=== PATIENT | female | born 1930 | race Caucasian/White ===

== ENCOUNTER 2019-06-27 18:30 | Emergency (ER) | payer BC ==
[~2019-06-27] VITALS: Ht 160 cm; Wt 79.4 kg
--- NOTE | 2019-06-27 19:15 | PHYS DOC ---
Past Medical History Past Medical History: Hypertension, Other Additional Past Medical Histor: OSTEOPOROSIS Alcohol Use: None Drug Use: None Adult General Chief Complaint Chief Complaint: UPPER EXTREMITY PAIN [facility] HPI Patient is a 88 year old female who was brought here for [facility] for diagnosis of subacute fracture humeral neck on the right side. Her family patient fell about 4 months ago, hurt her right shoulder, there was no x-ray done. And again she fell 3 days ago, she had been complaining of right shoulder pain, x-ray was done today of Her right shoulder shown subacute fracture humeral neck on the right side, with no dislocation. Somehow the [facility] doctor sent her here to be evaluated by orthopedic doctor. She denies any pain in her head or her neck. Patient denies any back pain. Patient denies any hip pain. Patient denies any weakness or numbness in her right upper extremity. All other ROS is negative unless otherwise noted in HPI Review of Systems Review of Systems See above Physical Exam Physical Exam See above Constitutional: Well developed, well nourished, no acute distress, non-toxic appearance. [] HENT: Normocephalic, atraumatic, bilateral external ears normal, oropharynx moist, no oral exudates, nose normal. [] Eyes: PERRLA, EOMI, conjunctiva normal, no discharge. [] Neck: Normal range of motion, no tenderness, supple, no stridor. [] Cardiovascular:Heart rate regular rhythm, no murmur [] Lungs & Thorax: Bilateral breath sounds clear to auscultation [] Abdomen: Bowel sounds normal, soft, no tenderness, no masses, no pulsatile masses. [] Skin: Warm, dry, no erythema, no rash. [] Back: No tenderness, no CVA tenderness. [] Extremities: There is tendernes to right proximal humerus area, no swelling, no contusion, no deformity, no cyanosis, no clubbing, ROM intact, no edema. NO EVIDENCE OF SHOULDER DISLOCATION. Neurologic: Alert and oriented X 3, normal motor function, normal sensory f unction, no focal deficits noted. [] Psychologic: Affect normal, judgement normal, mood normal. [] Current Patient Data Vital Signs Vital Signs Date Time Temp Pulse Resp B/P (MAP) Pulse Ox O2 Delivery O2 Flow Rate FiO2 06/27/19 18:30 97.8 66 18 213/89 (130) 97 Room Air 97.8 EKG EKG [] Radiology/Procedures Radiology/Procedures [] Course & Med Decision Making Course & Med Decision Making Pertinent Labs and Imaging studies reviewed. (See chart for details) [She is is an 80-year-old female with subacute fracture right humeral neck, no dislocation. Patient does not need any urgent intervention by orthopedic doctor today. A sling was placed on her right shoulder, her son will take her back to the [facility]pc. Patient was provided information of the orthopedic doctor here so she can call for follow-up next week. Son said he would take care of that. Dragon Disclaimer Dragon Disclaimer This electronic medical record was generated, in whole or in part, using a voice recognition dictation system. Departure Departure Impression: Primary Impression: Fx humeral neck Disposition: 01 HOME, SELF-CARE Condition: STABLE Referrals: IDALIA FONTENOT MD please call this orthopedic doctor for follow up next week. Patient Instructions: Arm Sling Use, [id number], Humerus Fracture, Treated with Immobilization HERNANDEZ MICHELE DO Jun 27, 2019 19:15
[2019-06-27 19:21] VITALS: BP 218/94
== END 2019-06-27 19:18 | disposition home or self-care (01) ==
LOC: ER 18:30
DX: S42.211A Unspecified displaced fracture of surgical neck of right humerus, initial encounter for closed fracture (principal); I10 Essential (primary) hypertension; W18.39XA Other fall on same level, initial encounter; Y93.89 Activity, other specified; Y92.128 Other place in nursing home as the place of occurrence of the external cause; Y99.8 Other external cause status
CPT/HCPCS: 99284

== ENCOUNTER 2020-08-20 20:50 | Inpatient (IN) | payer MEDICARE, OTHER ==
[2020-08-20 20:26] VITALS: BP 122/54
[~2020-08-20 20:50] MED LIST: ACET-1871 PO; ACET650S11 PR; ALEN70TA71 PO; CALC400T5 PO; DOCU-109 PO; LACT1CAP19 PO; LEVO25TA4 PO; LISI20TA18 PO; MAGN400O7 PO; MELA5LIQ2 PO; MULT-245 PO; VITA1TAB31 PO
[2020-08-20] MEDS ORDERED: ACETAMINOPHEN 325 MG TABLET. PO PRN (22:00)
[2020-08-20] MEDS ORDERED: CALCIUM CARBONATE 500 MG TAB.CHEW PO PRN (22:00)
[2020-08-20] MEDS ORDERED: PHENYLEPH/MINERAL OIL/PETROLAT RECTAL OINTMENT TUBE. RC PRN (22:00)
[2020-08-20] MEDS ORDERED: MAGNESIUM HYDROXIDE 2,400 MG/30 ML ORAL.SUSP. PO PRN (22:00)
[2020-08-20] MEDS ORDERED: ALBUTEROL SULFATE 2.5 MG/3 ML NEBU. NEB PRN (22:00)
[2020-08-20] MEDS ORDERED: ONDANSETRON ODT 4 MG TAB.RAPDIS. PO PRN (22:00)
[2020-08-20] MEDS ORDERED: ONDANSETRON PF 4 MG/2 ML VIAL. IVP PRN (22:00)
[2020-08-20 23:00] VITALS: BP 131/47
[2020-08-20] MEDS: POTASSIUM CL 20MEQ D5-0.2%NACL 1,000 ML IV SCH (23:14)
[2020-08-21] MEDS ORDERED: C.DIFF MED SCREEN BY RX. MC ONE (00:45)
[2020-08-21 03:00] VITALS: BP 105/40
--- NOTE | 2020-08-21 03:18 | NUR ---
Patient received from [facility]. admission assessment done, pt respond ed to verbal , will open eyes briefly only , will resist upper extremities when stimulated, no other response noted, umable to cough oral secretions, noted copious phlegm , oral suctioning done with eulalia , redness on coccyx noted but blanchable, incontinent with bm ,cleansed and michael care done, calazine cream applied on coccyx for protective barrier.Son Ananda and daughter called update given. Dr Lechuga aware of patient admission.
--- NOTE | 2020-08-21 06:33 | NUR ---
suicide risk assessment unable to complete pt non responsive
[2020-08-21 07:00] VITALS: BP 120/48
[2020-08-21] MEDS: MULTIVITAMIN with MINERAL TABLET. PO SCH (08:23)
[2020-08-21] MEDS: LACTOBACILLUS RHAMNOSUS GG 1 CAPSULE. PO SCH ×2 (08:23→20:36)
[2020-08-21] MEDS: LISINOPRIL 20 MG TABLET PO SCH (08:23)
[2020-08-21] MEDS: DOCUSATE SODIUM 100 MG CAPSULE. PO SCH (08:23)
[2020-08-21] MEDS: LIDOCAINE (700MG/PATCH) PATCH. TD SCH (08:32)
--- NOTE | 2020-08-21 08:32 | NUR ---
Lidocaine patches held due to unknown location of patches. Pt. asleep, appears to be comfortable.
[2020-08-21 08:56] LABS: ALBUMIN 2.2 g/dL (3.4-5.0); ALBUMIN/GLOBULIN RATIO 0.6 (1.0-1.7); CALCIUM 8.6 mg/dL (8.5-10.1); CREATININE 1.1 mg/dL (0.6-1.0); GFR 46.8; POTASSIUM 4.8 mmol/L (3.5-5.1); TOTAL BILIRUBIN 0.2 mg/dL (0.2-1.0); TOTAL PROTEIN 5.8 g/dL (6.4-8.2)
[2020-08-21 09:32] LABS: BASO % 1 % (0-3); EOS # 0.1 x10^3/uL (0.0-0.7); EOS % 1 % (0-3); HEMATOCRIT 36.7 % (36.0-47.0); HEMOGLOBIN 11.8 g/dL (12.0-15.5); LYMPH # 1.5 x10^3/uL (1.0-4.8); LYMPH % 23 % (24-48); MEAN CORPUSCULAR HEMOGLOBIN 28 pg (25-35); MEAN CORPUSCULAR HGB CONC 32 g/dL (31-37); MEAN CORPUSCULAR VOLUME 87 fL (79-100); MONO # 0.4 x10^3/uL (0.0-1.1); MONO % 6 % (0-9); NEUT # 4.8 x10^3/uL (1.8-7.7); NEUT % 70 % (31-73); PLATELET COUNT 170 x10^3/uL (140-400); RED CELL DISTRIBUTION WIDTH 17.3 % (11.5-14.5); WHITE BLOOD COUNT 6.8 x10^3/uL (4.0-11.0)
[2020-08-21] MEDS: MEROPENEM 500 MG in IV NORMAL SALINE 50ML 50 ML IV SCH ×2 (10:27→20:35)
[2020-08-21 11:00] VITALS: BP 122/41
[2020-08-21] MEDS: fentaNYL PF VIAL 100 MCG/2 ML VIAL IVP PRN ×3 (11:01→22:13)
--- NOTE | 2020-08-21 11:31 | HP ---
ADMIT DATE: 08/20/2020 HISTORY OF PRESENT ILLNESS: The patient is an 89-year-old female patient who resides at [facility], who apparently was on hospice. [facility] for altered mental status. The EMS reports that the patient is normally ambulatory and active, and is now minimally responsive and appears too weak to get out of bed. Food particles were on the patient's shirt and the patient has an audible productive cough. EMS was told by nursing facility that the patient is a full code, but is on hospice. Nurse talent acquisition relationship manager in the Emergency Room called and confirmed this with the facility. Her medication were reviewed and she is not on any anticoagulant. Apparently, the patient has history of brain tumor and she was extensively investigated in the Emergency Room, has had lab work and imaging studies. Her lab work including her CBC and CMP were essentially unremarkable. Her blood gases also showed that they were venous and shows hypoxia. Urinalysis showed that she has 20-40 wbc's, moderate amount of leukocyte esterase and positive nitrite. Her toxic screen was essentially negative. She was extensively imaged and had a chest x-ray, which showed that she has right greater than left pleural effusion with adjacent airspace consolidation. This can be seen with atelectasis and infiltrate. She has enlarged cardiomediastinal silhouette. Her CT scan of the head and cervical spine showed no acute intracranial finding. She has redemonstrated 1.2 cm frontal parasagittal extraaxial mass, most consistent with meningioma. She has degenerative changes without acute osseous abnormality in the cervical spine, enlarged right thyroid lobe containing multiple nodules, with one measuring up to 1.7 cm and the radiologist recommended a routine ultrasound. Further evaluation, she has large right sided pleural effusion. Her CT scan of the chest showed acute rib fractures at right 6th, 7th and 8th ribs with large right-sided pleural effusion, adjacent atelectasis and consolidation, superimposed infection cannot be excluded. She has trace left pleural effusion and lower lobe airspace disease, enlarged right thyroid gland. CT scan of the abdomen and pelvis showed the patient has acute comminuted fracture of the right greater trochanteric area, has extensive sigmoid diverticulosis with mild wall thickening and pericolonic fat stranding concerning for diverticulitis. She has left renal upper pole 1.7 cm indeterminate density exophytic mass. This may represent a cyst with proteinaceous or hemorrhagic content. Ultrasound is recommended to exclude solid neoplasm, right adnexa and cyst measured 6.3 cm. Pelvic ultrasound is recommended for further evaluation. She has right rib fractures, large right-sided pleural effusion, atelectasis is better appreciated in comparison with CT scan. She has had bilateral lower extremity Doppler ultrasound, which was negative for DVT. The left popliteal fossa and the popliteal veins cannot be evaluated, not allowing assistance for DVT at this segment. The patient was basically admitted and started on IV pain medication, apparently her son called from [place] and wanted her to be transferred to [facility] to be evaluated by the orthopedic surgeon to see if she is a candidate for surgical intervention of her right trochanteric fracture. I spoke with the nursing staff at [facility] and they stated that the patient is extremely demented, confused. She occasionally makes her needs known, but she is mostly bedbound, wheelchair bound. She is incontinent of both bowel and bladder. She occasionally feed herself, but most time, she requires a lot of cueing for her to eat and to be fed. PAST MEDICAL HISTORY: Significant for the fact that she has paroxysmal atrial fibrillation, cerebral infarction, essential hypertension, protein-calorie malnutrition, dementia with behavioral disturbances, recurrent falls, insomnia, gastroesophageal reflux disease, generalized osteoarthritis and age-related osteoporosis. She was COVID-19 positive on 05/31/2020. ALLERGIES: SHE IS ALLERGIC TO MACROLIDE, ANTIBIOTICS, PENICILLIN, ASPIRIN, AND ERYTHROMYCIN. MEDICATIONS: She is currently on following medications: She is on albuterol sulfate 8.5 mg inhaler two puffs every 4-6 hours, lisinopril 20 mg once a day extended release, Tylenol 650 mg three times a day, Ensure harvest liquid three times a day after meals, she is on calcium carbonate, Tums Ultra Strength 940 mg daily, she is on lactobacillus acidophilus twice a day, docusate sodium 100 mg daily, magnesium hydroxide for milk of magnesia 30 mL p.o. daily to arrange for constipation, ondansetron 4 mg every 4 hours, Preparation-H cream apply topically as needed, ergocalciferol vitamin D 1250 mcg daily, multivitamin one tablet once a day, and melatonin 5 mg p.o. at bedtime. REVIEW OF SYSTEMS: The patient is very confused and does not really give any useful information. PHYSICAL EXAMINATION: GENERAL: On examining her, she was resting slightly propped up in bed, in no apparent respiratory distress. No pallor, jaundice, cyanosis or thyromegaly. No jugular venous distention. No lower limb edema. VITAL SIGNS: Her heart rate was 75, blood pressure was 122/54, temperature was 98, respiratory rate was 16, and oxygen saturation was 91% on 3 liters of oxygen. HEAD, EYES, EARS, NOSE AND THROAT: Showed normocephalic, atraumatic. NECK: Supple. HEART: Showed normal first and second heart sounds. No gallop or murmur. CHEST: Clear to auscultation. No crepitation or rhonchi. ABDOMEN: Distended, soft, nontender. NEUROLOGIC: She is demented; however, she opens eyes and tracks, but does not follow command, at least when I saw her. All her cranial nerves seem to be grossly intact. She moves upper extremities symmetrically, decreased in the lower extremities. According to the nursing staff at [facility], she is mostly bed bound, wheelchair bound. LABORATORY DATA: Showed a white cell count of 6800, hemoglobin 11.8, hematocrit 36.7, MCV 87 and platelet count of 170,000. Her chemistry showed a serum sodium 143, potassium 4.8, chloride 109, bicarbonate 28, anion gap of 6, BUN 42, creatinine 1.1, estimated GFR was 46 mL per minute. Her glucose was 90, calcium was 8.6. Total bilirubin, AST, ALT, alkaline phosphatase were normal. Total protein 5.8, albumin was 2.2. ASSESSMENT AND PLAN: In summary, this is an 89-year-old female patient with dementia and behavioral disturbances, who was actually on hospice at [facility] who was admitted to [facility] and from there, she was transferred to [facility]. She continued to be confused; however, she was found to have right comminuted trochanteric fracture. She has also multiple right sided rib fractures. She has bilateral pleural effusion, possible urinary tract infection, pneumonia and possible diverticulitis. Her son wanted her to be seen by the orthopedic surgeon to see whether she is a candidate for surgical treatment. I did start her on IV meropenem as SHE IS ALLERGIC TO PENICILLIN as well as linezolid for treatment of possible healthcare-associated pneumonia, urinary tract infection and possible colitis. I have consulted the orthopedic surgeon to see whether she is a candidate for any surgical intervention, although given her mental status, I would be very surprised that they will do any surgical intervention for her. TRAVIS RIVERO MD DR: SHAYY/venita JOB#: [id number] / [id number]
[2020-08-21] MEDS: POTASSIUM CL 20MEQ D5-0.2%NACL 1,000 ML IV SCH (12:14)
--- NOTE | 2020-08-21 13:00 | PDOC2 ---
CONSULT Date of Consult Date of Consult DATE: 08/21/20 TIME: 12:55 Reason for Consult Reason for Consult: Right hip greater trochanter fracture Referring Physician Referring Physician: Ankush Identification/Chief Complaint Chief Complaint Right hip greater trochanter fracture. Apparent fall. Source Source: Caregiver, Chart review History of Present Illness Reason for Visit: The patient is an 89-year-old who was not able to give much history, and I spoke primarily to her daughter and there were several other family members who contributed. We all did ask the patient questions occasionally but she gave one-word answers which were difficult to understand. She had been in a care facility in [place], and normally eats okay and interacts some, but is primarily wheelchair-bound. There are multiple family members who apparently are part of the OA, including the daughter who was in the room, as well as a son who is serving in the in [facility]. The best I can tell the patient had a fall earlier this week perhaps Sunday, and the patient seems to indicate this occurred after using the toilet. The son in [place] was speaking to the nurse or caregiver at the facility, and the fall was reported to him on the phone on approximately Sunday, but none of the other family members were notified. The daughter is concerned because apparently EMS was to have been called if there was a fall, but that wasn't done, and also she was not notified, and the EMS involvement did not happen until several days later on when it was noticed that she was not eating well and was not herself. Work-up at [facility] does show acute right rib fractures, and an acute appearing right greater trochanter fracture. Patient also has a perhaps small laceration/contusion on her nose. The family is concerned and questioning whether her care was appropriate. The patient is on hospice care and has dementia, but is also a full code. The patient was given some pain medications yesterday such as lidocaine patches for her broken ribs and the son in [place] asked that those patches be removed and asked that she be given only Tylenol for pain. It is difficult to tell right now if the patient is in much pain. 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 Current Medications Current Medications Current Medications Potassium Chloride/Dextrose/ Sod Cl 1,000 ml @ 75 mls/hr [id number] IV Last administered on 08/21/20at 12:14; Start 08/20/20 at 23:00 Acetaminophen (Tylenol) 650 mg PRN TID PRN PO MILD PAIN / TEMP > 100.3'F; Start 08/20/20 at 22:00 Albuterol Sulfate (Ventolin Neb Soln) 2.5 mg PRN Q4HRS PRN NEB SHORTNESS OF BREATH; Start 08/20/20 at 22:00 Calcium Carbonate/ Glycine (Tums) 500 mg PRN AFTMEALHC PRN PO INDIGESTION; Start 08/20/20 at 22:00 Vitamin D (Vitamin D3) 50,000 unit WEEKLY PO ; Start 08/27/20 at 09:00 Docusate Sodium (Colace) 100 mg DAILY PO ; Start 08/21/20 at 09:00 Lactobacillus Rhamnosus (Culturelle) 1 cap BID PO ; Start 08/21/20 at 09:00 Lidocaine (Lidoderm) 2 patch DAILY TD ; Start 08/21/20 at 09:00 Lisinopril (Prinivil) 20 mg DAILY PO ; Start 08/21/20 at 09:00 Magnesium Hydroxide (Milk Of Magnesia) 400 mg PRN DAILY PRN PO CONSTIPATION; Start 08/20/20 at 22:00 Multivitamins (Thera M Plus) 1 tab DAILY PO ; Start 08/21/20 at 09:00 Ondansetron HCl (Zofran Odt) 4 mg PRN Q4HRS PRN PO NAUSEA/VOMITING 1ST CHOICE; Start 08/20/20 at 22:00 Ondansetron HCl (Zofran) 4 mg PRN Q4HRS PRN IVP NAUSEA/VOMITING 1ST CHOICE; Start 08/20/20 at 22:00 Phenyleph/Shark Oil/Min Oil/Petrol (Preparation H) 1 francis PRN QID PRN RC RECTAL PAIN; Start 08/20/20 at 22:00 Fentanyl Citrate (Fentanyl 2ml Vial) 50 mcg PRN Q4HRS PRN IVP SEVERE PAIN 7-10 Last administered on 08/21/20at 11:01; Start 08/20/20 at 22:00 Linezolid/Dextrose 300 ml @ 300 mls/hr Q12HR IV Last administered on 08/21/20at 08:41; Start 08/21/20 at 09:00 Pharmacy Consult (C.diff Med Screen By Rx) 1 each 1X ONCE [facility] ; Start 08/21/20 at 00:45; Stop 08/21/20 at 00:46; Status DC Meropenem 500 mg/ Sodium Chloride 50 ml @ 100 mls/hr Q12HR IV Last administered on 08/21/20at 10:27; Start 08/21/20 at 09:00 Active Scripts Active Levothyroxine Sodium 25 Mcg Tablet 25 Mcg PO DAILY06 30 Days Culturelle (Lactobacillus Rhamnosus Gg) 1 Each Cap.sprink 1 Cap PO BID 30 Days Acetaminophen Supp (Acetaminophen) 650 Mg Supp.rect 650 Mg OH PRN Q4HRS PRN 10 Days Reported D3 + K2 Dots 1,000 Units Tab (Vitamin D3/Vitamin K2) 1 Each Tab.rapdis 1 Tab PO DAILY 30 Days Acetaminophen Ext.release (Acetaminophen) 650 Mg Tablet.er 650 Mg PO TID PRN Tums Ultra (Calcium Carbonate) 400 Mg Tab.chew 400 Mg PO PRN Q4HRS PRN Multi Vitamin Daily (Multivitamin) 1 Each Tablet 1 Tab PO DAILY 30 Days Milk Of Magnesia (Magnesium Hydroxide) 400 Mg/5 Ml Oral.susp 400 Mg PO DAILY Melatonin 5 Mg/15 Ml Liquid 5 Mg PO HS Lisinopril 20 Mg Tablet 1 Tab PO DAILY Colace (Docusate Sodium) 100 Mg Capsule 1 Cap PO DAILY 30 Days Allergies Allergies: Coded Allergies: telithromycin (Verified Allergy, Severe, 03/23/20) KETOLIDES Macrolide Antibiotics (Verified Allergy, Intermediate, 03/23/20) Macrolide Immunosuppressant (Verified Allergy, Intermediate, 03/23/20) Penicillins (Verified Allergy, Intermediate, 03/23/20) aspirin (Verified Allergy, Intermediate, 03/23/20) erythromycin base (Verified Allergy, Intermediate, 08/20/20) ROS Review of System The patient is unable to give a review of systems due to dementia. Reports are that she has decreased her ability to eat and decreased her interaction, and that there may have been a fall earlier this week. Physical Exam Physical Exam She was alert and propped in bed although occasionally drifted off to sleep. She gave one-word answers that were difficult to understand. We asked when she fell, and she repeatedly said "Peee" or "Rony" which was difficult to interpret. She did seem to nod in agreement that she fell after urinating and perhaps fell while using toilet or commode. General: Alert, No acute distress HEENT: Other (3 mm red spot on the lateral bridge of the nose, could be a small abrasion or contusion, and there might be slight swelling of the nose) Lungs: Other (She seems to be moving air adequately but is not taking deep breaths, and has some secretions which were suctioned intermittently.) Heart: Regular rate Abdomen: Soft, Other (I examined the rib area for areas of deformity or bruisi ng I do not see any evidence of trauma externally. No bruising no discoloration, and diffuse tenderness only.) Extremities: No edema, Other (I examined the hip in detail. There is no shortening or rotation. There is no ecchymosis over the hip area. She does have mild tenderness to deep palpation. No deformity. She is not normally ambulatory, so could not detect any gait abnormalities. She is able to dorsiflex and plantarflex the foot and toes, and the capillary refill and pulses are normal.) Skin: No breakdown, No significant lesion Neuro: Normal tone, Sensation intact Vitals VITALS Vital Signs Date Time Temp Pulse Resp B/P (MAP) Pulse Ox O2 Delivery O2 Flow Rate FiO2 08/21/20 12:10 Nasal Cannula 2.0 08/21/20 11:00 98.6 55 16 122/41 (68) 96 98.6 Labs Labs Laboratory Tests Test 08/21/20 07:32 White Blood Count 6.8 x10^3/uL (4.0-11.0) Red Blood Count 4.20 x10^6/uL (3.50-5.40) Hemoglobin 11.8 g/dL (12.0-15.5) Hematocrit 36.7 % (36.0-47.0) Mean Corpuscular Volume 87 fL (79-100) Mean Corpuscular Hemoglobin 28 pg (25-35) Mean Corpuscular Hemoglobin Concent 32 g/dL (31-37) Red Cell Distribution Width 17.3 % (11.5-14.5) Platelet Count 170 x10^3/uL (140-400) Neutrophils (%) (Auto) 70 % (31-73) Lymphocytes (%) (Auto) 23 % (24-48) Monocytes (%) (Auto) 6 % (0-9) Eosinophils (%) (Auto) 1 % (0-3) Basophils (%) (Auto) 1 % (0-3) Neutrophils # (Auto) 4.8 x10^3/uL (1.8-7.7) Lymphocytes # (Auto) 1.5 x10^3/uL (1.0-4.8) Monocytes # (Auto) 0.4 x10^3/uL (0.0-1.1) Eosinophils # (Auto) 0.1 x10^3/uL (0.0-0.7) Basophils # (Auto) 0.0 x10^3/uL (0.0-0.2) Sodium Level 143 mmol/L (136-145) Potassium Level 4.8 mmol/L (3.5-5.1) Chloride Level 109 mmol/L (98-107) Carbon Dioxide Level 28 mmol/L (21-32) Anion Gap 6 (6-14) Blood Urea Nitrogen 42 mg/dL (7-20) Creatinine 1.1 mg/dL (0.6-1.0) Estimated GFR (Cockcroft-Gault) 46.8 BUN/Creatinine Ratio 38 (6-20) Glucose Level 90 mg/dL (70-99) Calcium Level 8.6 mg/dL (8.5-10.1) Total Bilirubin 0.2 mg/dL (0.2-1.0) Aspartate Amino Transf (AST/SGOT) 18 U/L (15-37) Alanine Aminotransferase (ALT/SGPT) 25 U/L (14-59) Alkaline Phosphatase 90 U/L (46-116) Total Protein 5.8 g/dL (6.4-8.2) Albumin 2.2 g/dL (3.4-5.0) Albumin/Globulin Ratio 0.6 (1.0-1.7) Laboratory Tests Test 08/21/20 07:32 White Blood Count 6.8 x10^3/uL (4.0-11.0) Red Blood Count 4.20 x10^6/uL (3.50-5.40) Hemoglobin 11.8 g/dL (12.0-15.5) Hematocrit 36.7 % (36.0-47.0) Mean Corpuscular Volume 87 fL (79-100) Mean Corpuscular Hemoglobin 28 pg (25-35) Mean Corpuscular Hemoglobin Concent 32 g/dL (31-37) Red Cell Distribution Width 17.3 % (11.5-14.5) Platelet Count 170 x10^3/uL (140-400) Neutrophils (%) (Auto) 70 % (31-73) Lymphocytes (%) (Auto) 23 % (24-48) Monocytes (%) (Auto) 6 % (0-9) Eosinophils (%) (Auto) 1 % (0-3) Basophils (%) (Auto) 1 % (0-3) Neutrophils # (Auto) 4.8 x10^3/uL (1.8-7.7) Lymphocytes # (Auto) 1.5 x10^3/uL (1.0-4.8) Monocytes # (Auto) 0.4 x10^3/uL (0.0-1.1) Eosinophils # (Auto) 0.1 x10^3/uL (0.0-0.7) Basophils # (Auto) 0.0 x10^3/uL (0.0-0.2) Sodium Level 143 mmol/L (136-145) Potassium Level 4.8 mmol/L (3.5-5.1) Chloride Level 109 mmol/L (98-107) Carbon Dioxide Level 28 mmol/L (21-32) Anion Gap 6 (6-14) Blood Urea Nitrogen 42 mg/dL (7-20) Creatinine 1.1 mg/dL (0.6-1.0) Estimated GFR (Cockcroft-Gault) 46.8 BUN/Creatinine Ratio 38 (6-20) Glucose Level 90 mg/dL (70-99) Calcium Level 8.6 mg/dL (8.5-10.1) Total Bilirubin 0.2 mg/dL (0.2-1.0) Aspartate Amino Transf (AST/SGOT) 18 U/L (15-37) Alanine Aminotransferase (ALT/SGPT) 25 U/L (14-59) Alkaline Phosphatase 90 U/L (46-116) Total Protein 5.8 g/dL (6.4-8.2) Albumin 2.2 g/dL (3.4-5.0) Albumin/Globulin Ratio 0.6 (1.0-1.7) Images Images CT scan reports reviewed and images independently reviewed. Greater trochanter fracture with some extension posterior laterally is seen on series 4 image 61. The fracture is also seen on series 3 image 36, and the posterior extension is seen on series 3 image 39. I do not see evidence of an [place] [address] IMAGING REPORT Signed PATIENT: KADI REDMOND ACCOUNT: [id number] : 1930 LOCATION: ER AGE: 89 SEX: F EXAM STATUS: REG ER ORD. PHYSICIAN: LIDIA GRIFFIN DO REASON: fall? PROCEDURE: CT ABD PELV W/ IV CONTRST ONLY CT ABDOMEN+PELVIS W History: Reason: fall? / Spl. Instructions: 60 ML OMNI 300 / History: Comparison: CT chest 08/19/2020 Technique: CT of the abdomen and pelvis with intravenous contrast. Findings: Redemonstrated large right pleural effusion adjacent to fractures of the posterior lateral sixth seventh and eighth ribs. Consolidation/atelectasis at the right lower lobe. Left basilar consolidation/atelectasis. Cardiomegaly and coronary artery calcification. There is no free intra-abdominal air. Trace free fluid in the pelvic cul-de- sac. The liver, gallbladder, biliary ducts, adrenal glands and spleen are unremarkable. Mild pancreatic atrophy. Hypodensity and cortical thinning at the upper pole of the right kidney may represent focal atrophy/scarring. There is an intermediate density round exophytic 1.7 cm mass at the upper pole left kidney (Hounsfield unit 49). Stomach is unremarkable. Normal small bowel. Extensive sigmoid diverticulosis with mild wall thickening and adjacent inflammatory changes. Mild rectal thickening and round density within the rectum may represent a polyp or diverticulum. Status post hysterectomy. Right adnexa 6.3 x 5.4 cm cyst. No abdominal or pelvic adenopathy. Moderate aortoiliac atherosclerotic calcification without aneurysm. Diffuse soft tissue anasarca. Acute comminuted fracture of the right greater trochanter with surrounding edema diffusely decreased osseous mineralization. Advanced multilevel degenerative coppola ges in the spine. Impression: 1. Acute comminuted fracture right greater trochanter. 2. Extensive sigmoid diverticulosis with mild wall thickening and pericolonic fat stranding concerning for diverticulitis. 3. Left renal upper pole 1.7 cm intermediate density exophytic mass. This may represent a cyst with proteinaceous or hemorrhagic content. Ultrasound is recommended to exclude solid neoplasm. 4. Right adnexal cyst measuring 6.3 cm. Pelvic ultrasound is recommended for further evaluation. 5. Right rib fractures, large right pleural effusion and atelectasis better appreciated on comparison CT chest. ------ Exposure: One or more of the following individualized dose reduction techniques were utilized for this examination: 1. Automated exposure control 2. Adjustment of the mA and/or kV according to patient size 3. Use of iterative reconstruction technique. Electronically signed by: Michael Kellogg MD (08/19/2020 3:30 PM) [facility] DICTATED AND SIGNED BY: MICHAEL KELLOGG MD DATE: 08/19/20 [id number] CC: YOUSUF BARNES DO; LIDIA GRIFFIN DO Assessment/Plan Assessment/Plan 2020 ICD-10-CM Diagnosis Code S72.114A Nondisplaced fracture of greater trochanter of right femur, initial encounter for closed fracture She does have a greater trochanter fracture but it is nondisplaced and does not have involvement of any of the weightbearing portion of the femur. I do not see any areas of concerning intertrochanteric extension. She had only a CT scan to show the frature, and I will obtain a plain x-ray which will be helpful for future comparison as she will need follow-up x-rays in the office to observe as the fracture heals. My recommendation is nonoperative treatment. In ambulatory patients, weightbearing as tolerated with a walker is used; she is nonambulatory and uses a wheelchair, so I would allow her to transfer from bed to wheelchair without restrictions. In elderly patients sometimes Tylenol is enough for pain control but I would have a low threshold of getting her very small doses of narcotics such as half of a Percocet tablet every 6 hours as needed for pain. Apparently her son does not want her to get anything for pain other than Tylenol. For the rib fractures, pain control is very important. She needs to have enough pain control to cough and deep breathe or she is likely to get pneumonia, atelectasis, or other complications. Again, the lidocaine patches or small doses of narcotic pain medication seem appropriate if Tylenol is not allowing satisfactory pain relief to cough and deep breathe. IDALIA FONTENOT MD Aug 21, 2020 13:00
[2020-08-21 15:00] VITALS: BP 120/35
[2020-08-21 19:00] VITALS: BP 121/52
--- NOTE | 2020-08-21 20:57 | RAD ---
PROCEDURE: XR BILATERAL HIP (WITH OR WITHOUT PELVIS) 2 VIEWS_RIGHT STUDY DATE: 08/21/2020 CLINICAL INDICATION / HISTORY: Reason: fracture evaluation / Spl. Instructions: / History: . TECHNIQUE: Three views of the right hip were obtained. COMPARISON: No relevant comparison FINDINGS: The visualized pelvic ring and left hip are intact with left hip degenerative changes in lo wer lumbar spinal degenerative changes incidentally noted. Right hip also shows medial right hip joint space narrowing consistent with degenerative changes but in addition, there is a lucency along the lateral aspect of the greater trochanter that is suspicious for a healing avulsion fracture. No femoral neck fracture is identified. No hip dislocation or malal ignment otherwise noted. The soft tissues show arterial vascular calcifications. IMPRESSION: Probable avulsion fracture of the right greater trochanter with a healing response sugges ting chronicity. No acute fracture or dislocation shown. Electronically signed by: Umang Alcaraz MD (08/21/2020 8:55 PM) [facility]
[2020-08-21 23:00] VITALS: BP 114/40
[2020-08-22] MEDS: POTASSIUM CL 20MEQ D5-0.2%NACL 1,000 ML IV SCH ×2 (01:25→17:14)
[2020-08-22 03:00] VITALS: BP 112/41
[2020-08-22 07:00] VITALS: BP 141/42
[2020-08-22] MEDS: LACTOBACILLUS RHAMNOSUS GG 1 CAPSULE. PO SCH ×2 (09:00→21:00)
[2020-08-22] MEDS: MULTIVITAMIN with MINERAL TABLET. PO SCH (09:00)
[2020-08-22] MEDS: LIDOCAINE (700MG/PATCH) PATCH. TD SCH (09:00)
[2020-08-22] MEDS: LISINOPRIL 20 MG TABLET PO SCH (09:00)
[2020-08-22] MEDS: DOCUSATE SODIUM 100 MG CAPSULE. PO SCH (09:00)
[2020-08-22] MEDS: MEROPENEM 500 MG in IV NORMAL SALINE 50ML 50 ML IV SCH ×2 (09:47→21:13)
--- NOTE | 2020-08-22 10:43 | PN ---
DATE: 08/22/2020 SUBJECTIVE: The patient is resting, slightly propped up in bed, in no apparent respiratory distress. She is awake, alert, opens her eyes, tracks, but does not really respond verbally. Nursing staff did not voice any concern and stated that she has an uneventful night. PHYSICAL EXAMINATION: GENERAL: When I examined her, she looked pale, but no jaundice, cyanosis or thyromegaly. No jugular venous distention. No lower limb edema. VITAL SIGNS: Her heart rate was 68, blood pressure was 141/42, temperature was 98.3, respiratory rate was 16, and oxygen saturation was 98% on 2 liters of oxygen. HEAD, EYES, EARS, NOSE AND THROAT: Showed normocephalic, atraumatic. NECK: Supple. HEART: Normal first and second heart sounds. No gallop, rub or murmur. CHEST: Shows central trachea, equal bilateral chest expansion, air entry, vesicular breath sounds. No crepitation or rhonchi. ABDOMEN: Slightly distended, soft, nontender. NEUROLOGIC: She is demented without any obvious lateralizing sign. Her intake and output are incompletely recorded. LABORATORY DATA: As of yesterday showed a white cell count 6800, hemoglobin 11.8, hematocrit 36.7, MCV was 87 and platelet count of 170,000. Her chemistry showed a serum sodium 143, potassium 4.8, chloride 109, bicarbonate 28, anion gap of 6, BUN 41, creatinine was 1.1, estimated GFR was 46 mL per minute. Her glucose was 90, calcium was 8.6. Total bilirubin, AST, ALT, alkaline phosphatase were normal. Total protein was 5.8, albumin was 2.2. ASSESSMENT: 1. This is an 89-year-old female patient, a resident [facility], who was admitted with possible fall and right trochanteric fracture. 2. Multiple right-sided rib fracture. 3. Pneumonia. 4. Urinary tract infection. 5. Questionable diverticulitis. The patient was seen by the orthopedic surgeon, who did not recommend any surgical intervention given that there is no fracture of the neck of the femur and that the patient should be able to bear weight as tolerated. Meanwhile, we will continue with IV antibiotic in the form of meropenem given that SHE IS ALLERGIC TO PENICILLIN. I attempted to call her son multiple times yesterday and this morning. I managed to talk to his yesterday and informed her that she is here already and she has already been seen by the orthopedic surgeon. TRAVIS RIVERO MD DR: SHAYY/venita JOB#: [id number] / [id number]
[2020-08-22 11:00] VITALS: BP 126/44
[2020-08-22 15:00] VITALS: BP 132/46
[2020-08-22 19:00] VITALS: BP 129/70
--- NOTE | 2020-08-22 21:10 | NUR ---
Patient found in bed scratching at michael-area and pulling at Estrada catheter; bilateral mitts placed on patient at this time.
[2020-08-22] MEDS: fentaNYL PF VIAL 100 MCG/2 ML VIAL IVP PRN (21:14)
[2020-08-22 23:00] VITALS: BP 146/38
[2020-08-23 03:00] VITALS: BP 145/37
[2020-08-23] MEDS: POTASSIUM CL 20MEQ D5-0.2%NACL 1,000 ML IV SCH ×2 (04:20→11:13)
[2020-08-23 07:19] VITALS: BP 121/62
[2020-08-23 07:32] LABS: HEMATOCRIT 35.1 % (36.0-47.0); HEMOGLOBIN 11.5 g/dL (12.0-15.5); RED BLOOD COUNT 4.03 x10^6/uL (3.50-5.40); RED CELL DISTRIBUTION WIDTH 17.6 % (11.5-14.5)
[2020-08-23 07:51] LABS: ALBUMIN/GLOBULIN RATIO 0.6 (1.0-1.7); CALCIUM 8.8 mg/dL (8.5-10.1); CREATININE 0.8 mg/dL (0.6-1.0); GFR 67.5; POTASSIUM 4.8 mmol/L (3.5-5.1); TOTAL BILIRUBIN 0.3 mg/dL (0.2-1.0); TOTAL PROTEIN 5.6 g/dL (6.4-8.2)
[2020-08-23] MEDS: MEROPENEM 500 MG in IV NORMAL SALINE 50ML 50 ML IV SCH (08:27)
[2020-08-23] MEDS: LIDOCAINE (700MG/PATCH) PATCH. TD SCH (08:29)
[2020-08-23] MEDS: LISINOPRIL 20 MG TABLET PO SCH (09:00)
[2020-08-23] MEDS: LACTOBACILLUS RHAMNOSUS GG 1 CAPSULE. PO SCH (09:00)
[2020-08-23] MEDS: DOCUSATE SODIUM 100 MG CAPSULE. PO SCH (09:00)
[2020-08-23] MEDS: MULTIVITAMIN with MINERAL TABLET. PO SCH (09:00)
--- NOTE | 2020-08-23 09:50 | NUR ---
Wound Care Wound Type/Assessment: Pt seen for left foot wounds. Skin assessed, L 2nd toe and foot with multiple scattered, dry, adherent scabs, no fluctuance or drainage noted. 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 Education provided: pt unable to comprehend teaching Offloading surface/device: wedge and pillows for repositioning. Recommended Referrals/Tests: n/a Discharge Recommendations for dressings: see treatment plan above.
--- NOTE | 2020-08-23 10:14 | PN ---
DATE: 08/23/2020 SUBJECTIVE: The patient is resting, slightly propped up in bed, in no apparent respiratory distress. She is very confused. Her speech is nonsensical. The nursing staff stated that she is unable to swallow even her secretions. PHYSICAL EXAMINATION: GENERAL: When I examined her, she was somewhat pale, but no jaundice, cyanosis, or thyromegaly. No jugular venous distention. No lower limb edema. VITAL SIGNS: Her heart rate was 48, blood pressure was 121/62, temperature was 96.8, respiratory rate was 18 and oxygen saturation was 98% on 3 liters of oxygen. HEAD, EYES, EARS, NOSE, AND THROAT: Showed normocephalic, atraumatic. NECK: Supple. HEART: Showed normal first and second heart sounds. No gallop, rub or murmur. CHEST: Showed central trachea, equal bilateral chest expansion, air entry, vesicular sounds. No crepitation or rhonchi anteriorly. She does have dull percussion noted and absent breath sounds on the right side posteriorly. ABDOMEN: Her abdomen is soft, nontender. No guarding or rigidity. No organomegaly. All hernial orifice intact. Bowel sounds normal. NEUROLOGIC: She is demented without any obvious lateralizing sign. All her cranial nerves are grossly intact. She seemed to be able to move her upper extremities slightly better than her lower extremities. According to the nursing staff at [facility], the patient is mostly bed-bound/wheelchair-bound. She is incontinent of bowel and bladder. She requires to be fed according to them and her intake over the last 24 hours was 2700 and output was 1125. LABORATORY DATA: As of this morning, her white cell count was 6000; hemoglobin 11.5; hematocrit 35; MCV 87; and platelet count of 138,000. Serum sodium was 138, potassium 4.8, chloride 106, bicarbonate 28, anion gap of 4, BUN 27, creatinine 0.8, estimated GFR was 67 mL per minute. Her glucose was 90, calcium was 8.8. Total bilirubin, AST, ALT, alkaline phosphatase were normal. Total protein was 5.6, albumin 2. ASSESSMENT: This is an 89-year-old female patient, a resident at [facility], who was admitted with: 1. Possible fall and right trochanteric fracture. She was seen by Dr. Solis, and basically he did not recommend any surgical intervention given that there is no fracture of the neck or femur, that the patient should be able to bear weight as tolerated. 2. Multiple right-sided rib fractures. 3. Pneumonia. 4. Urinary tract infection. 5. Questionable diverticulitis. The patient has other medical problems include: A. Paroxysmal atrial fibrillation. B. Cerebral infarction. C. Essential hypertension. D. Protein-calorie malnutrition. E. Dementia with behavioral disturbances. F. Recurrent falls. G. Gastroesophageal reflux disease. H. Generalized osteoarthritis and age-related osteoporosis. PLAN: To continue with IV antibiotics in the form of meropenem as well as Zyvox. Continue with pain management for now. She is on Lidoderm patches to the right side. The plan is to continue with pain management, continue with IV fluid. I will consult Speech Therapy to evaluate her swallowing again and I have consulted Dr. Alberts to evaluate her neurologically as the patient is really very demented. She has severe dysphagia and she is unable to swallow even her oral secretion. There is a difference of approach between her daughters and her son who are now in [place]. Her son does not seem to believe that she is demented and that she cannot still be able to eat and drink and the hospice was only to have an extra help; however, the patient herself is really very demented and should be in hospice and comfort care. Once I have the evaluation of the speech pathologist as well as the neurologist, we will discuss with her son again. TRAVIS RIVERO MD DR: SHAYY/venita JOB#: [id number] / [id number]
[2020-08-23 10:32] VITALS: BP 129/34
--- NOTE | 2020-08-23 10:56 | PDOC2 ---
NEUROLOGY CONSULT Date of Service DOS: DATE: 08/23/20 TIME: 10:45 Reason for Consult Reason for Consult: Dementia Referring Physician Referring Physician: Dr. Lechuga Source Source: Chart review History of Present Illness History of Present Illness The patient is an 89-year-old right-handed female whom I last saw during her February hospital stay after she fell at a group home and had a scalp laceration. She had an extra-axial hemorrhage and an MRI of the brain showing meningioma and a small right cerebellar infarct. There were some family dynamic problems, daughters live nearby and realize the patient is markedly demented, but son, who frequently travels to [facility], and has power of insurance defense attorney, seemed to believe that the patient is normal and has no dementia. After several discussions, he was agreeable to this diagnosis and the need for hospice care. Thus the patient has been back at the group home with hospice care, albeit a full code. She eats and interact some, but mainly is wheelchair-bound. The patient had a fall perhaps on 08/17, perhaps while using the toilet. Fall was reported to the son. Emergency medical service was summoned on 08/19. Work-up at [facility] showed right rib fractures and right greater trochanter fracture. There was also a small laceration on the nose. Orthopedics has recommended nonoperative treatment. Past Medical History Cardiovascular: HTN, Other (Deep venous thrombosis, "leaky heart valve") CENTRAL NERVOUS SYSTEM: CVA, Dementia GI: GERD Musculoskeletal: Osteoarthritis Renal/: UTI, Urinary Incontinence Endocrine: Osteoporosis Past Surgical History Past Surgical History: Hysterectomy, Other (Removal of benign tumors, vein str ipping) Family History Family History: No pertinent hx Social History Social History , group home resident, no alcohol or tobacco Current Medications Current Medications Current Medications Potassium Chloride/Dextrose/ Sod Cl 1,000 ml @ 75 mls/hr [id number] IV Last administered on 08/22/20at 17:14; Start 08/20/20 at 23:00 Acetaminophen (Tylenol) 650 mg PRN TID PRN PO MILD PAIN / TEMP > 100.3'F; Start 08/20/20 at 22:00 Albuterol Sulfate (Ventolin Neb Soln) 2.5 mg PRN Q4HRS PRN NEB SHORTNESS OF BREATH; Start 08/20/20 at 22:00 Calcium Carbonate/ Glycine (Tums) 500 mg PRN AFTMEALHC PRN PO INDIGESTION; Start 08/20/20 at 22:00 Vitamin D (Vitamin D3) 50,000 unit WEEKLY PO ; Start 08/27/20 at 09:00 Docusate Sodium (Colace) 100 mg DAILY PO ; Start 08/21/20 at 09:00 Lactobacillus Rhamnosus (Culturelle) 1 cap BID PO ; Start 08/21/20 at 09:00 Lidocaine (Lidoderm) 2 patch DAILY TD Last administered on 08/23/20at 08:29; Start 08/21/20 at 09:00 Lisinopril (Prinivil) 20 mg DAILY PO ; Start 08/21/20 at 09:00 Magnesium Hydroxide (Milk Of Magnesia) 400 mg PRN DAILY PRN PO CONSTIPATION; Start 08/20/20 at 22:00 Multivitamins (Thera M Plus) 1 tab DAILY PO ; Start 08/21/20 at 09:00 Ondansetron HCl (Zofran Odt) 4 mg PRN Q4HRS PRN PO NAUSEA/VOMITING 1ST CHOICE; Start 08/20/20 at 22:00 Ondansetron HCl (Zofran) 4 mg PRN Q4HRS PRN IVP NAUSEA/VOMITING 1ST CHOICE; Start 08/20/20 at 22:00 Phenyleph/Shark Oil/Min Oil/Petrol (Preparation H) 1 francis PRN QID PRN RC RECTAL PAIN; Start 08/20/20 at 22:00 Fentanyl Citrate (Fentanyl 2ml Vial) 50 mcg PRN Q4HRS PRN IVP SEVERE PAIN 7-10 Last administered on 08/22/20at 21:14; Start 08/20/20 at 22:00 Linezolid/Dextrose 300 ml @ 300 mls/hr Q12HR IV Last administered on 08/23/20at 09:40; Start 08/21/20 at 09:00 Pharmacy Consult (C.diff Med Screen By Rx) 1 each 1X ONCE [facility] ; Start 08/21/20 at 00:45; Stop 08/21/20 at 00:46; Status DC Meropenem 500 mg/ Sodium Chloride 50 ml @ 100 mls/hr Q12HR IV Last administered on 08/23/20at 08:27; Start 08/21/20 at 09:00 Active Scripts Active Levothyroxine Sodium 25 Mcg Tablet 25 Mcg PO DAILY06 30 Days Culturelle (Lactobacillus Rhamnosus Gg) 1 Each Cap.sprink 1 Cap PO BID 30 Days Acetaminophen Supp (Acetaminophen) 650 Mg Supp.rect 650 Mg RI PRN Q4HRS PRN 10 Days Reported D3 + K2 Dots 1,000 Units Tab (Vitamin D3/Vitamin K2) 1 Each Tab.rapdis 1 Tab PO DAILY 30 Days Acetaminophen Ext.release (Acetaminophen) 650 Mg Tablet.er 650 Mg PO TID PRN Tums Ultra (Calcium Carbonate) 400 Mg Tab.chew 400 Mg PO PRN Q4HRS PRN Multi Vitamin Daily (Multivitamin) 1 Each Tablet 1 Tab PO DAILY 30 Days Milk Of Magnesia (Magnesium Hydroxide) 400 Mg/5 Ml Oral.susp 400 Mg PO DAILY Melatonin 5 Mg/15 Ml Liquid 5 Mg PO HS Lisinopril 20 Mg Tablet 1 Tab PO DAILY Colace (Docusate Sodium) 100 Mg Capsule 1 Cap PO DAILY 30 Days Allergies Allergies: Coded Allergies: telithromycin (Verified Allergy, Severe, 03/23/20) KETOLIDES Macrolide Antibiotics (Verified Allergy, Intermediate, 03/23/20) Macrolide Immunosuppressant (Verified Allergy, Intermediate, 03/23/20) Penicillins (Verified Allergy, Intermediate, 03/23/20) aspirin (Verified Allergy, Intermediate, 03/23/20) erythromycin base (Verified Allergy, Intermediate, 08/20/20) ROS Review of System Negative for fever, chills, weight loss, shortness of breath, chest pain, indigestion, hematochezia, melena, and dysuria. Full 14-point review of systems is negative. Physical Exam Physical Examination General: Well-developed, well-nourished white female in no acute distress HEENT: Normocephalic, atraumatic. Temporal arteriespulsatile and nontender. Neck: Supple without bruit, no meningismus Musculoskeletal: Stability:see neurologic. Gait exam:see neurologic. Tone:see neurologic.Strength:see neurologic. Neurological: Mental Status: orientation, memory, attention span/concentration, language, fund of knowledge: Does not know date, location, cannot tell me her name, does not follow commands, nonverbal. She cannot name or repeat. Cranial Nerves:Pupils equal and reactive to light, extraocular movements areintact, visual bowling are full to threat. Facial sensation is normal. There is no facial asymmetry. Vestibulo-ocular reflex is intact. Palate elevates and tongue protrudes in midline. All other cranial related problems are negative except as mentioned be fore.Reflexes:1+ and symmetric with flexor plantar responses. Bilateral grasp reflexes. Motor:withdraws to pain, normal tone and bulk. Coordination:Not cooperative. Gait:Not tested. Sensory:Responds to pinprick in all 4 extremities. Vitals VITALS Vital Signs Date Time Temp Pulse Resp B/P (MAP) Pulse Ox O2 Delivery O2 Flow Rate FiO2 08/23/20 10:32 54 18 129/34 (65) 98 Nasal Cannula 3.0 08/23/20 03:00 96.8 96.8 Labs Labs Laboratory Tests Test 08/23/20 06:35 White Blood Count 6.0 x10^3/uL (4.0-11.0) Red Blood Count 4.03 x10^6/uL (3.50-5.40) Hemoglobin 11.5 g/dL (12.0-15.5) Hematocrit 35.1 % (36.0-47.0) Mean Corpuscular Volume 87 fL (79-100) Mean Corpuscular Hemoglobin 29 pg (25-35) Mean Corpuscular Hemoglobin Concent 33 g/dL (31-37) Red Cell Distribution Width 17.6 % (11.5-14.5) Platelet Count 138 x10^3/uL (140-400) Sodium Level 138 mmol/L (136-145) Potassium Level 4.8 mmol/L (3.5-5.1) Chloride Level 106 mmol/L (98-107) Carbon Dioxide Level 28 mmol/L (21-32) Anion Gap 4 (6-14) Blood Urea Nitrogen 27 mg/dL (7-20) Creatinine 0.8 mg/dL (0.6-1.0) Estimated GFR (Cockcroft-Gault) 67.5 BUN/Creatinine Ratio 34 (6-20) Glucose Level 90 mg/dL (70-99) Calcium Level 8.8 mg/dL (8.5-10.1) Total Bilirubin 0.3 mg/dL (0.2-1.0) Aspartate Amino Transf (AST/SGOT) 21 U/L (15-37) Alanine Aminotransferase (ALT/SGPT) 20 U/L (14-59) Alkaline Phosphatase 89 U/L (46-116) Total Protein 5.6 g/dL (6.4-8.2) Albumin 2.0 g/dL (3.4-5.0) Albumin/Globulin Ratio 0.6 (1.0-1.7) Laboratory Tests Test 08/23/20 06:35 White Blood Count 6.0 x10^3/uL (4.0-11.0) Red Blood Count 4.03 x10^6/uL (3.50-5.40) Hemoglobin 11.5 g/dL (12.0-15.5) Hematocrit 35.1 % (36.0-47.0) Mean Corpuscular Volume 87 fL (79-100) Mean Corpuscular Hemoglobin 29 pg (25-35) Mean Corpuscular Hemoglobin Concent 33 g/dL (31-37) Red Cell Distribution Width 17.6 % (11.5-14.5) Platelet Count 138 x10^3/uL (140-400) Sodium Level 138 mmol/L (136-145) Potassium Level 4.8 mmol/L (3.5-5.1) Chloride Level 106 mmol/L (98-107) Carbon Dioxide Level 28 mmol/L (21-32) Anion Gap 4 (6-14) Blood Urea Nitrogen 27 mg/dL (7-20) Creatinine 0.8 mg/dL (0.6-1.0) Estimated GFR (Cockcroft-Gault) 67.5 BUN/Creatinine Ratio 34 (6-20) Glucose Level 90 mg/dL (70-99) Calcium Level 8.8 mg/dL (8.5-10.1) Total Bilirubin 0.3 mg/dL (0.2-1.0) Aspartate Amino Transf (AST/SGOT) 21 U/L (15-37) Alanine Aminotransferase (ALT/SGPT) 20 U/L (14-59) Alkaline Phosphatase 89 U/L (46-116) Total Protein 5.6 g/dL (6.4-8.2) Albumin 2.0 g/dL (3.4-5.0) Albumin/Globulin Ratio 0.6 (1.0-1.7) Images Images CT HEAD AND C-SPINE , 08/19, [facility] CT HEAD: There is no evidence for intracranial mass or hemorrhage. There is no hydrocephalus or midline shift. No abnormal extra-axial fluid collections are present. There is redemonstration of a high density 1.2 cm mass along the frontal/falcine dura, most consistent with meningioma. No adjacent edema or significant mass effect. Arias/white matter differentiation is preserved. The visualized paranasal sinuses and mastoid air cells are clear. The skull and scalp are within normal limits. CT CERVICAL SPINE: There is no evidence for fracture in the cervical spine. Alignment is normal. Multilevel degenerative disc and facet disease. No destructive osseous lesions are seen. Enlarged right thyroid lobe containing multiple nodules including elongated 1.7 cm hypodense nodule. Large right pleural effusion. Impression: 1. No acute intracranial findings. 2. Redemonstrated 1.2 cm frontal/parasagittal extra-axial mass most consistent with meningioma. 3. Degenerative changes without acute osseous abnormality in the cervical spine. 4. Enlarged right thyroid lobe containing multiple nodules with one measuring at least 1.7 cm. Recommend routine ultrasound for further evaluation. 5. Large right pleural effusion. Assessment/Plan Assessment/Plan Impression: Severe dementia, most likely Alzheimer's History of lacunar infarct in the inferior right cerebellum. Two small right frontal meningiomas. Recurrent falls Right trochanteric fracture and rib fractures Pneumonia, urinary tract infection, possible diverticulitis, atrial fibrillation, hypertension, malnutrition, gastroesophageal reflux disease, osteoarthritis, osteoporosis Family dynamic problems Recommendations: Continue current hospice care No additional neurological studies needed. Discussed with Dr. Lechuga Thank you for letting me help with the patient's care. VASYL HUTSON MD Aug 23, 2020 10:56
[2020-08-23 15:00] VITALS: BP 145/62
[2020-08-23] MEDS: fentaNYL PF VIAL 100 MCG/2 ML VIAL IVP PRN (17:09)
[2020-08-23 19:00] VITALS: BP 142/45
[2020-08-23] MEDS ORDERED: SCOPOLAMINE 1.5MG PATCH. TD SCH (19:00)
--- NOTE | 2020-08-23 20:53 | NUR ---
Patient discharged as inpatient; readmission under inpatient Hospice care at this time.
[2020-08-27] MEDS ORDERED: CHOLECALCIFEROL (VITAMIN D3) 5,000 UNIT CAPSULE PO SCH (09:00)
--- NOTE | 2020-09-14 09:16 | DS ---
DATE OF DISCHARGE: 08/23/2020 HOSPITAL COURSE: The patient is an 89-year-old female patient who was originally a resident at [facility] on hospice. She apparently was brought to the Emergency Room of [facility] with altered mental status. Further investigation showed that the patient has right trochanteric fracture and multiple right side rib fractures. She was actually on hospice at [facility] and was admitted to [facility]. While there, her son insisted that he wants her to be transferred to [facility] to be evaluated by the orthopedic surgeon, although she does not suspect any surgery to be contemplated. She was seen in consultation by Dr. Solis, who did not recommend any surgical intervention. The patient has greater trochanteric fracture with some extension posterolaterally seen. The fracture is also seen on other images, but according to Dr. Solis, recommended nonoperative treatment. She was ambulatory, she can weightbear as tolerated with a walker. She is nonambulatory and uses a wheelchair, so she was allowed to transfer her from bed to wheelchair without restriction. For the rib fractures, the pain control is very important, she needs to have enough pain control to cough and deep breathing as she is likely to get pneumonia, atelectasis or other complication. We did start her on lidocaine patches. After lengthy discussion with the family including her daughter and son who was in [place] and after evaluation by Dr. Alberts, a decision was made to discharge her to inpatient hospice care. PHYSICAL EXAMINATION: GENERAL: On the day of discharge, the patient was resting slightly propped up in bed, in no apparent distress. She was pale, but no jaundice, cyanosis or thyromegaly. No jugular venous distension. No limb edema. VITAL SIGNS: Her heart rate was 73, blood pressure was 142/45, temperature was 97.6, respiratory rate was 17 and oxygen saturation was 94% on 3 liters of oxygen. HEAD, EYES, EARS, NOSE AND THROAT: Showed normocephalic, atraumatic. NECK: Supple. HEART: Showed normal first and second heart sounds. No gallop or murmur. CHEST: Shows central trachea, good chest expansion and air entry on the left side. Dull percussion noted and absent breath sounds on the right side posteriorly. ABDOMEN: Showed multiple wounds. Given the multitude of comorbidities and after discussion with extensive discussion with the family, a decision was made to admit her to inpatient hospice. She was actually discharged from acute care and admitted to inpatient hospice care to continue on fentanyl, Ativan, scopolamine and atropine drops together with oxygen. FINAL DISCHARGE DIAGNOSES: Include; 1. Fall with right trochanteric fracture as well as multiple right side rib fractures, none requires any surgical intervention. 2. Multiple right sided rib fractures. 3. Pneumonia. 4. Urinary tract infection. 5. Questionable diverticulitis. 6. The patient has multiple other medical problems including: A. Paroxysmal atrial fibrillation. B. Cerebral infarction. C. Essential hypertension. D. Protein-calorie malnutrition. E. Dementia with behavioral disturbances. 7. Gastroesophageal reflux disease. 8. Generalized osteoarthritis and age-related osteoporosis. TRAVIS RIVERO MD DR: SHAYY/venita JOB#: [id number] / [id number]
[2020-11-11] MEDS ORDERED: SENN8.6T11 GT (22:32)
[2020-11-11] MEDS ORDERED: BISA10SU4 RC (22:32)
[2020-11-11] MEDS ORDERED: OXYC15TA3 GT (22:32)
[2020-11-11] MEDS ORDERED: MULT9LIQ6 GT (22:32)
[2020-11-11] MEDS ORDERED: COLL30OI TP (22:32)
[2020-11-11] MEDS ORDERED: ATRO2DRO3 SL (22:32)
[2020-11-11] MEDS ORDERED: FENT1PAT89 TD (22:32)
[2020-11-11] MEDS ORDERED: ASCO500C PO (22:32)
[2020-11-11] MEDS ORDERED: IBUP-1815 GT (22:32)
[2020-11-11] MEDS ORDERED: ACET325T21 GT (22:32)
[2020-11-16] MEDS ORDERED: CEPH500C PO (11:06)
== END 2020-08-23 20:57 | disposition hospice, inpatient (51) | DRG 193 ==
LOC: 4 NORTH 20:50
PROVIDERS: ADMIT Internal Medicine; ATTEND Internal Medicine
DX: J18.9 Pneumonia, unspecified organism (principal); S72.114A Nondisplaced fracture of greater trochanter of right femur, initial encounter for closed fracture; S22.41XA Multiple fractures of ribs, right side, initial encounter for closed fracture; N39.0 Urinary tract infection, site not specified; E46 Unspecified protein-calorie malnutrition; F02.81 Dementia in other diseases classified elsewhere, unspecified severity, with behavioral disturbance; I62.9 Nontraumatic intracranial hemorrhage, unspecified; J90 Pleural effusion, not elsewhere classified; J98.11 Atelectasis; K57.30 Diverticulosis of large intestine without perforation or abscess without bleeding; D32.0 Benign neoplasm of cerebral meninges; G30.9 Alzheimer's disease, unspecified; I10 Essential (primary) hypertension; I48.0 Paroxysmal atrial fibrillation; K21.9 Gastro-esophageal reflux disease without esophagitis; M15.9 Polyosteoarthritis, unspecified; M81.0 Age-related osteoporosis without current pathological fracture; R09.02 Hypoxemia; R29.6 Repeated falls; S01.01XA Laceration without foreign body of scalp, initial encounter; S01.21XA Laceration without foreign body of nose, initial encounter; Z51.5 Encounter for palliative care; Z86.73 Personal history of transient ischemic attack (TIA), and cerebral infarction without residual deficits; Z88.0 Allergy status to penicillin; Z90.710 Acquired absence of both cervix and uterus; Z99.3 Dependence on wheelchair
CPT/HCPCS: 36415; 73502; 80053; 85025; 85027; J2020; J2185; J3010; J3480; 92610-GN; 97110-GO; 97530-GP; 97535-GO; G0378; J7042